=== PATIENT | female | born 1965 | race Caucasian/White ===

== ENCOUNTER 2018-01-23 19:24 | Observation (INO) ==
[2018-01-23 20:31] LABS: Basophils % 0.3 %; Eosinophils # 0.2 K/mcL (0.0-0.6); Eosinophils % 2.3 %; Hematocrit 46.8 % (35.3-44.9); Hemoglobin 15.9 g/dL (11.5-15.4); Immature Granulocytes % 0.1 % (0-4); Lymphocytes % 34.1 %; Mean Corpuscular Hemoglobin 32.4 pg (28.0-33.3); Mean Corpuscular Volume 95.5 fL (83.0-100.0); Mean Platelet Volume 10.7 fL (9.4-12.4); Monocytes # 0.7 K/mcL (0.0-1.3); Monocytes % 7.4 %; Neutrophils # 4.9 K/mcL (1.6-8.9); Platelet Count 226 K/mcL (140-400); Red Cell Distribution Width 13.5 % (11.5-14.5); Segmented Neutrophils % 55.8 %
--- NOTE | 2018-01-23 20:36 | Emergency Department Note ---
Disposition Clinical Impression: Stroke Qualifiers: CVA mechanism: other Qualified Code(s): I63.8 - Other cerebral infarction Disposition: Admitted As Inpatient Condition: Fair Forms: ED Satisfaction Letter General Adult HPI - General Chief complaint: ED Neuro Symptoms/Deficit Stated complaint: neuro sx onset SUNDAY Source: patient Limitations: no limitations Nursing Notes Reviewed: Yes Vital Signs Reviewed: Yes - History of Present Illness HPI Narrative: 50-year-old female presents emergency department after having right upper extremity weakness and right-sided facial droop since Sunday. Patient denies any history of stroke, she does report being a smoker and that strokes run in her family. Mother had a stroke. Patient has a history of atrial fibrillation. Patient is on any blood thinners. Patient denies any slurring of speech. Patient denies any fevers, chills. Pain Scale: 6 - Related Data Home Medications Medication Instructions Recorded Confirmed Buprenorphine HCl/Naloxone HCl 2 tab SL DAILY 01/23/18 01/23/18 [Buprenorphin-Naloxon 8-2 mg Sl] Allergies Allergy/AdvReac Type Severity Reaction Status Date / Time No Known Allergies Allergy Verified 01/23/18 22:38 All systems ED: reviewed and negative except as stated. Review of Systems: As Per HPI Constitutional: Denies: fever, chills Eyes: Denies: vision change Cardiovascular: Denies: chest pain, palpitations Respiratory: Denies: cough, dyspnea Gastrointestinal: Denies: abdominal pain, nausea, vomiting Genitourinary: Denies: urgency, dysuria Musculoskeletal: Denies: back pain, neck pain Integumentary: Denies: rash, abrasion Neurological: Reports: weakness. 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 Absent: scleral icterus - ENT ENT exam: normal oropharynx, mucous membranes moist - Neck Neck exam: Present: normal inspection, full ROM, trachea midline - Chest Chest inspection: Present: normal inspection, symmetric chest wall rise - Respiratory Respiratory exam: Present: normal lung sounds bilaterally. Absent: respiratory distress - Cardiovascular Cardiovascular exam: Present: regular rate, normal rhythm, normal heart sounds. Absent: systolic murmur, diastolic murmur - Abdominal Exam Abdominal exam: Present: soft, Non-Tender. Absent: distention, guarding, rebound - Extremities Exam Extremities exam: Present: normal inspection, full ROM, normal capillary refill. Absent: tenderness - Expanded Lower Extremity Exam Hip/Pelvis exam: Present: full ROM. Absent: tenderness, swelling - Back Exam Back exam: Present: normal inspection, full ROM - Neurological Exam Neurological exam: Present: alert, oriented X3, other (Patient has right-sided facial droop. She is able to wrinkle forehead. Patient has 4 out of 5 strength in the right upper extremity. No pronator drift. Finger to nose is normal.) - Psychiatric Psychiatric exam: Present: normal affect, normal mood - Skin Skin exam: Present: warm, dry, intact, normal color. Absent: rash Course Vital Signs Temperature 98.2 F 01/23/18 19:25 Pulse Rate 83 01/23/18 19:25 Respiratory Rate 16 01/23/18 19:25 Blood Pressure 146/83 01/23/18 19:25 O2 Sat by Pulse Oximetry 93 01/23/18 19:25 Temperature 98.2 F 01/23/18 19:25 Pulse Rate 72 01/23/18 23:16 Respiratory Rate 16 01/23/18 23:16 Blood Pressure 126/88 01/23/18 23:16 O2 Sat by Pulse Oximetry 95 01/23/18 23:16 Oxygen Delivery Oxygen Delivery Nasal Cannula Medical Decision Making - [facility] Narrative Medical decision making narrative: 52-year-old female presents to the emergency department with concern for stroke like symptoms. Patient has symptoms that started over 3 days ago. Patient currently out of the window for TPA. CT of the head was obtained and this was negative. EKG did not reveal any evidence of ischemia. Chest x-ray was normal as well. Neurology was consulted regarding the patient and agreed to follow patient on floor. Patient was given aspirin here in the emergency department. Patient was admitted to the hospitalist who agreed to accept admission. Patient and mother were bedside and agreed with plan. Patient hemodynamically stable and not in acute distress at time of admission to the hospital. Chest X-Ray 01/23/18 19:39 IMPRESSION: No acute pulmonary process. D/ / Zack Acosta / Zack Acosta Interpreting Provider: Zack Acosta Head CT 01/23/18 20:26 IMPRESSION: 1. No acute intracranial abnormality. D/ / Zoran Montgomery MD / Zoran Montgomery MD Interpreting Provider: Zoran Montgomery MD Vital Signs Temperature 98.2 F 01/23/18 19:25 Pulse Rate 83 01/23/18 19:25 Respiratory Rate 16 01/23/18 19:25 Blood Pressure 146/83 01/23/18 19:25 O2 Sat by Pulse Oximetry 93 01/23/18 19:25 Temperature 98.2 F 01/23/18 19:25 Pulse Rate 72 01/23/18 23:16 Respiratory Rate 16 01/23/18 23:16 Blood Pressure 126/88 01/23/18 23:16 O2 Sat by Pulse Oximetry 95 01/23/18 23:16 Oxygen Delivery Oxygen Delivery Nasal Cannula - Lab Data Result diagrams: 01/23/18 20:10 01/23/18 20:10 Lab Results 01/23/18 01/23/18 Range/Units 20:10 20:10 WBC 8.7 (4.3-11.1) K/mcL RBC 4.90 (3.82-4.97) M/mcL Hgb 15.9 H (11.5-15.4) g/dL Hct 46.8 H (35.3-44.9) % MCV 95.5 (83.0-100.0) fL MCH 32.4 (28.0-33.3) pg MCHC 34.0 (31.6-35.5) g/dL RDW 13.5 (11.5-14.5) % Plt Count 226 (140-400) K/mcL MPV 10.7 (9.4-12.4) fL Immature Gran % 0.1 (0-4) % Seg Neutrophils % 55.8 % Lymphocytes % 34.1 % Monocytes % 7.4 % Eosinophils % 2.3 % Basophils % 0.3 % Neutrophils # 4.9 (1.6-8.9) K/mcL Lymphocytes # 3.0 (0.6-4.6) K/mcL Monocytes # 0.7 (0.0-1.3) K/mcL Eosinophils # 0.2 (0.0-0.6) K/mcL Basophils # 0.0 (0.0-0.2) K/mcL Sodium 137 (136-145) mEq/L Potassium 4.6 (3.5-5.1) mEq/L Chloride 105 (98-107) mEq/L Carbon Dioxide 29 (23-29) mEq/L BUN 6 (6-20) mg/dL Creatinine 0.54 L (0.60-1.20) mg/dL Est GFR ( Amer) > 60 (> 60) Est GFR (Non-Af Amer) > 60 (> 60) BUN/Creatinine Ratio 11 (6-26) Glucose 105 (70-105) mg/dL Calculated Osmolality 282 (280-300) Calcium 9.3 (8.6-10.3) mg/dL Troponin I < 0.03 (< 0.04) ng/mL
[2018-01-23 20:45] LABS: BUN/Creatinine Ratio 11 (6-26); Blood Urea Nitrogen 6 mg/dL (6-20); Calcium 9.3 mg/dL (8.6-10.3); Carbon Dioxide 29 mEq/L (23-29); Chloride 105 mEq/L (98-107); Glucose 105 mg/dL (70-105); Osmolality,Calculated 282 (280-300); Potassium 4.6 mEq/L (3.5-5.1); Sodium 137 mEq/L (136-145); Troponin I < 0.03 ng/mL (< 0.04); eGFR For African Americans > 60 (> 60); eGFR For Non-African Americans > 60 (> 60)
--- NOTE | 2018-01-23 20:52 | Emergency Department Note ---
START Narrative - START START: I examined this patient and my medical decision-making was reviewed with the Resident Physician. I agree with the documented findings, disposition and treatment plan as described except to the extent set forth below. 52yo F here for right facial droop and some weakness that started on Sunday. She thought she would come in today to get it checked out. No history of TIA or strokes. She denies any leg weakness was states her right arm has felt weak. On exam, she has some flattening of the right nasolabial fold. Cranial nerves are otherwise intact. slight weakness of right LE. no leg involvement. will do ct head
[2018-01-23] MEDS ORDERED: Aspirin Enteric Coated 81 MG Tablet PO STA (22:28)
[2018-01-23] MEDS ORDERED: Ondansetron 4 MG/2 ML VIAL IVP PRN (23:02)
[2018-01-23] MEDS ORDERED: Acetaminophen 325 MG TABLET PO PRN (23:04)
[2018-01-23] MEDS ORDERED: Naloxone 0.4 MG/ML INJ IVP PRN (23:04)
--- NOTE | 2018-01-23 23:12 | Internal Med History&Physical ---
Date of Encounter: 01/23/18 Time of Encounter: 23:08 Internal Medicine - H&P: HPI Chief complaint: Numbness Admitted From: Emergency Dept Plans for Post Hospital Care: Home History of present illness: Ms. 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 The patient is also an everyday smoker. She was sent from urgent care to the ED and she was getting evaluated failure for complaints of numbness and weakness of the right upper extremities for the last 2 days. The patient has been generally fatigued for the last 3 days before that and this has resolved, however, on Sunday she started complaining of the above. She also reports blurry vision that gets better whenever she uses her glasses. There is also noted right facial droop by her mother. The patient denies lower extremity weakness. She has no fever, chills , nausea, vomiting, chest pain, shortness of breath, abdominal pain, diarrhea, constipation, urinary symptoms. The patient CT head failed to show any acute finding. She was given aspirin 81 mg in the ED. Laboratory workup was unremarkable. She is being admitted for TIA/CVA workup. Neurology were contacted by the ED and will see the patient. Past Med Surg Social Fam HX - Past Medical History Medical history: other Psychiatric history: no psych history - Past Surgical History Surgical History: no surgical history - Social History Smoking Status: Current every day smoker Smokeless Tobacco Status: No Alcohol use: none Drug use: none, other - Family History Mother Living Status: Still Living Hx Family Neurologic Disorders: Yes (Stroke) Father Living Status: Hx Family Cardiac Disorders: Yes Brother Living Status: Hx Family Cardiac Disorders: Yes Internal Medicine - H&P: Meds Buprenorphine HCl/Naloxone HCl [Buprenorphin-Naloxon 8-2 mg Sl] 2 tab SL DAILY 01/23/18 [History] 3 Allergy/AdvReac Type Severity Reaction Status Date / Time No Known Allergies Allergy Verified 01/23/18 22:38 All Systems PM: A 10-system review of systems was performed and is negative for pertinent findings except as documented above in the HPI. Review of systems: All systems reviewed are negative except as mentioned above - Constitutional Vitals: Temp Pulse Resp BP Pulse Ox 98.2 F 70 16 134/77 94 01/23/18 19:25 01/23/18 21:27 01/23/18 21:27 01/23/18 21:27 01/23/18 21:27 Exam: GEN: NAD HEENT: AT, NC, No cyanosis, oral mucosa is moist, No JVD Lymphatics: No lymphadenoapthy Eyes: Extrocular muscles intact, anicteric CVS:RRR. S1, S2, No m/r/g RESP: CTAB ABD: Soft, NT, ND, +BS EXT: No edema, No rashes, 2+ DP NEURO: RUE strength is 4/5 compared to 5/5 in all other ext. CN II-XII intact, No sensory deficits Psych: Cooperative, Not anxious or depressed Internal Med - H&P Results - Labs CBC & Chem 7: 01/23/18 20:10 01/23/18 20:10 Labs: Short CBC 01/23/18 Range/Units 20:10 WBC 8.7 (4.3-11.1) K/mcL Hgb 15.9 H (11.5-15.4) g/dL Hct 46.8 H (35.3-44.9) % Plt Count 226 (140-400) K/mcL Neutrophils # 4.9 (1.6-8.9) K/mcL BMP 01/23/18 20:10 Sodium 137 Potassium 4.6 Chloride 105 Carbon Dioxide 29 BUN 6 Creatinine 0.54 L Glucose 105 Calcium 9.3 Cardiac Enzymes 01/23/18 Range/Units 20:10 Troponin I < 0.03 (< 0.04) ng/mL - Impressions ITS Impressions Chest X-Ray 01/23/18 19:39 IMPRESSION: No acute pulmonary process. D/ / Zack Acosta / Zack Acosta Interpreting Provider: Zack Acosta Head CT 01/23/18 20:26 IMPRESSION: 1. No acute intracranial abnormality. D/ / Zoran Montgomery MD / Zoran Montgomery MD Interpreting Provider: Zoran Montgomery MD - Assessment and plan (1) Right upper extremity numbness Current Visit: No Status: Acute Assessment and plan: The patient presents with multiple complaints of facial droop, right upper extremity weakness and numbness. She is weaker on the right upper ext than the left upper ext on my exam. I do not appreciate facial droop. Otherwise, her neuro exam is unremarkable. CT head was negative for acute finding. We will admit the patient for an MRI brain, echocardiogram, carotid ultrasound. We will start the patient on daily aspirin. Check lipid panel and A1c. Neuro telemetry. checks. Neurology see in the morning. (2) DVT prophylaxis Current Visit: Yes Status: Acute Assessment and plan: Heparin subcutaneous (3) Drug abuse Current Visit: Yes Status: Acute Assessment and plan: Former IVDA. on Suboxone (4) Tobacco abuse Current Visit: Yes Status: Acute Assessment and plan: Nicotine patch - Time Spent With Patient Total time spent is greater than 50% in coordination of care (as documented) at patient's floor/unit and/or counseling patient:
[2018-01-24] MEDS: Nicotine 21 MG PATCH.TD24 TD SCH ×2 (01:11→09:22)
[2018-01-24] MEDS: *HR* Heparin 5,000 UNIT/ML VIAL SQ SCH ×3 (05:14→21:22)
[2018-01-24 05:50] LABS: Basophils % 0.4 %; Eosinophils # 0.2 K/mcL (0.0-0.6); Eosinophils % 2.5 %; Hematocrit 45.4 % (35.3-44.9); Hemoglobin 14.7 g/dL (11.5-15.4); Immature Granulocytes % 0.1 % (0-4); Lymphocytes # 2.5 K/mcL (0.6-4.6); Mean Corpuscular HGB Conc 32.4 g/dL (31.6-35.5); Mean Corpuscular Hemoglobin 30.8 pg (28.0-33.3); Mean Corpuscular Volume 95.2 fL (83.0-100.0); Mean Platelet Volume 10.8 fL (9.4-12.4); Monocytes # 0.6 K/mcL (0.0-1.3); Monocytes % 8.6 %; Neutrophils # 3.8 K/mcL (1.6-8.9); Platelet Count 219 K/mcL (140-400); Red Blood Count 4.77 M/mcL (3.82-4.97); Red Cell Distribution Width 13.6 % (11.5-14.5); Segmented Neutrophils % 53.4 %
[2018-01-24 05:53] LABS: BUN/Creatinine Ratio 17 (6-26); Blood Urea Nitrogen 9 mg/dL (6-20); Calcium 9.1 mg/dL (8.6-10.3); Carbon Dioxide 31 mEq/L (23-29); Chloride 106 mEq/L (98-107); Chol/HDL Ratio 5.4 (0-4.9); Cholesterol 205 mg/dL (< 200); Glucose 101 mg/dL (70-105); HDL Cholesterol 38 mg/dL (40-59); LDL Cholesterol,Calculated 127 mg/dL (0-99); Magnesium 1.9 mg/dL (1.6-2.6); Osmolality,Calculated 287 (280-300); Potassium 4.6 mEq/L (3.5-5.1); Sodium 139 mEq/L (136-145); Triglycerides 199 mg/dL (< 150); eGFR For African Americans > 60 (> 60); eGFR For Non-African Americans > 60 (> 60)
[2018-01-24 06:41] LABS: Estimated Average Glucose 114 mg/dl; Hemoglobin A1C 5.6 %
[2018-01-24] MEDS ORDERED: BUPRENORPHIN NALOXON SL SCH (09:00)
[2018-01-24] MEDS: Aspirin Enteric Coated 81 MG Tablet PO SCH (09:22)
[2018-01-24] MEDS: *HR* Buprenorphine HCl 8 MG TAB.SUBL SL SCH (09:24)
--- NOTE | 2018-01-24 10:47 | Neurology - Consult Note ---
Date of Encounter: 01/24/18 Time of Encounter: 08:45 Assessment and Plan (1) Paresthesia of right arm Current Visit: Yes Status: Acute Improving paresthesia of the right upper extremity receded from elbow to now just include the hand. Most likely peripheral etiology, but the patient does have risk factor in smoking and family history. TIA workup pending, including echo, carotid duplex, and MRI. Further recommendations following completion of workup. If workup is negative, patient should have close follow up as an outpatient for EMG. History of Present Illness Chief complaint: Right arm numbness HPI: Chantal Garsia is a 52 year old female who presents with numbness in her right upper extremity. Patient initially felt very fatigued on Sunday01/20/2018. She started to develop a numbness in her right hand the following day, explaining that it felt like pins and needles. The following day the numbness worsened and extended up to her elbow. She started to notice some swelling of her middle 3 digits. Her mother believes that she noticed some facial drooping, but the patient states that she did not have her dentures in and that can make her face look asymmetrical. Since admission the patient states that the numbness has improved and now it is only in the fingertips. 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 She is a current smoker, having smoked for approximately 25 years and smoking one pack per day. Past Med Surg Social Fam HX - Past Medical History Medical history: other Psychiatric history: no psych history - Past Surgical History Surgical History: - Social History Smoking Status: Current every day smoker Packs per day: 1 Smokeless Tobacco Status: No Alcohol use: none Drug use: none, other - Family History Mother Living Status: Still Living Hx Family Cardiac Disorders: Yes Hx Family Neurologic Disorders: Yes Father Living Status: Hx Family Cardiac Disorders: Yes Brother Age: 38 Living Status: Hx Family Cardiac Disorders: Yes Medications and Allergies Buprenorphine HCl/Naloxone HCl [Buprenorphin-Naloxon 8-2 mg Sl] 2 tab SL DAILY 01/23/18 [History] 3 Allergy/AdvReac Type Severity Reaction Status Date / Time No Known Allergies Allergy Verified 01/23/18 22:38 All Systems: The remainder of the systems were reviewed and are negative Review of Systems: A 10 point review of systems was completed and was negative except as noted in the HPI. Physical Examination - Vital Signs Vital Signs: Initial Vital Signs Temp Pulse Resp BP Pulse Ox 98.2 F 83 16 146/83 93 01/23/18 19:25 01/23/18 19:25 01/23/18 19:25 01/23/18 19:25 01/23/18 19:25 - Exam Exam: CONSTITUTIONAL: Well-developed and well-nourished. Comfortable and in no acute distress. CARDIOVASCULAR: Regular rate and rhythm. +S1 and S2. CHEST: Normal work of breathing. NEURO: Mental Status: Alert and oriented x3. Follows commands and answers questions. Cranial Nerves: PERRL. EOMI. Visual saxena intact. Symmetrical facial strength. Facial sensation intact. No dysarthria. Hearing intact. Soft palate elevates symmetrically. SCM and trapezius without weakness. Tongue protrudes in midline. Motor: Left - 5/5 in upper and lower extremities. R - 5/5 in upper and lower extremities. Diminished sensation in the right fingertips. Chronically impaired sensation in the left lower extremity distal to the knee. Cerebellar function intact to [id number]. Tinnel test at the wrist and elbow, prayer sign, Phalen sign negative. Results - Laboratory Findings CBC and BMP: 01/24/18 05:16 01/24/18 05:16 Abnormal lab findings: Abnormal lab results Hct 45.4 % (35.3-44.9) H 01/24/18 05:16 Carbon Dioxide 31 mEq/L (23-29) H 01/24/18 05:16 Creatinine 0.52 mg/dL (0.60-1.20) L 01/24/18 05:16 Triglycerides 199 mg/dL (< 150) H 01/24/18 05:16 Cholesterol 205 mg/dL (< 200) H 01/24/18 05:16 LDL Cholesterol, Calc 127 mg/dL (0-99) H 01/24/18 05:16 VLDL Cholesterol, Calc 40 mg/dL (< 31) H 01/24/18 05:16 HDL Cholesterol 38 mg/dL (40-59) L 01/24/18 05:16 Cholesterol/HDL Ratio 5.4 (0-4.9) H 01/24/18 05:16 Consult Discharge Plan - Plan Referrals: Larry Ramirez DO [Resident] - 02/04/18 3:20 pm
--- NOTE | 2018-01-24 15:53 | Electrocardiograph Report ---
[address] [place], [place] [address] Test Date: 2018-01-23 Pat Name: Chantal Garsia Department: 104 Room: 2N06 Gender: F [employer] Supervisor: REDD : 1965 Requested By: Hawk Houston Order Number: [id number] Reading MD: Candy Wood Measurements Intervals [place] Rate: 77 P: 59 AK: 130 QRS: 81 QRSD: 86 T: 57 QT: 352 QTc: 384 Interpretive Statements SINUS RHYTHM Electronically Signed On 01-24-2018 15:52:06 EDT by Candy Wood
--- NOTE | 2018-01-24 21:00 | Internal Med Progress Note ---
Date of Encounter: 01/24/18 Time of Encounter: 19:00 - Assessment and plan (1) Median nerve compression in right forearm Status: Acute Assessment and plan: Her MRI of brain and carotid duplex are normal. Echogardiogram is pending. She does have parasthesia in the right hand. This is likely due to right median nerve compression. See notes from neurology. (2) CVA (cerebral vascular accident) Status: Ruled-out Assessment and plan: Cva was ruled out. See above. Qualifiers: CVA mechanism: unspecified Qualified Code(s): I63.9 - Cerebral infarction, unspecified - Time Spent With Patient Total time spent is greater than 50% in coordination of care (as documented) at patient's floor/unit and/or counseling patient: 25 - 35 minutes - Subjective Interval history: The patient feels pretty good. Numbness and tingling as well as swelling in the right hand are very mild. They are definitely better than a couple days ago. She doesn't have any weakness in extremities. She is normal speech and swallowing. She is normal gait. - Constitutional Vitals: Temp Pulse Resp BP Pulse Ox 97.5 F L 65 17 134/86 95 01/24/18 19:19 01/24/18 19:19 01/24/18 19:19 01/24/18 19:19 01/24/18 19:19 General appearance: Present: A&O X 3, pleasant, no acute distress, answers questions appropriately - Cardiovascular Cardiovascular exam: Present: RRR, +S1, +S2. Absent: diastolic murmur, gallop, rubs, systolic murmur - GI/Abdominal GI/Abdominal exam: Present: normal bowel sounds, soft, no peritoneal signs. Absent: distended, tenderness - Neurological Exam Neurological exam: Present: no focal deficits, strengths equal and symetr throughout Additional comments: She has some parasthesia in the right hand. Internal Medicine: Result - Labs CBC & Chem 7: 01/24/18 05:16 01/24/18 05:16 Labs: Short CBC 01/24/18 Range/Units 05:16 WBC 7.2 (4.3-11.1) K/mcL Hgb 14.7 (11.5-15.4) g/dL Hct 45.4 H (35.3-44.9) % Plt Count 219 (140-400) K/mcL Neutrophils # 3.8 (1.6-8.9) K/mcL BMP 01/24/18 05:16 Sodium 139 Potassium 4.6 Chloride 106 Carbon Dioxide 31 H BUN 9 Creatinine 0.52 L Glucose 101 Calcium 9.1 - Impressions Impressions Echocardiogram 01/24/18 10:00 Impressions: LVEF 60%. Mildly dilated left ventricle. Mild left ventricular diastolic dysfunction. Normal right ventricular structure and function. No significant valvular dysfunction. No pulmonary hypertension. No evidence of PFO with agitated saline contrast. Left Ventricular Wall Motion: Rest Echo Findings All wall segments showed normal motion. Findings: Study Quality * Technically adequate exam. ECG Findings * Normal sinus rhythm. Left Ventricle * LVEF 60%. * Normal LV wall thickness. * LV chamber size upper limits of normal. * Mild left ventricular diastolic dysfunction. Right Ventricle * Normal right ventricular structure and function. Left Atrium * Mildly dilated left atrium. Right Atrium * Normal right atrial size. Mitral Valve * Normal mitral valve structure. * No mitral stenosis. * Trace mitral regurgitation. Aortic Valve * No aortic regurgitation. * Aortic valve not well visualized. * No aortic stenosis. Tricuspid Valve * Tricuspid valve not well visualized. * Trace tricuspid regurgitation. * Estimated RA pressure is 3 mmHg. * Estimated RVSP is 19 mmHg. * No pulmonary hypertension. Pulmonic Valve * Pulmonic valve is not well visualized. * No pulmonic stenosis. * Trace pulmonic regurgitation. Pulmonary Artery * Pulmonary artery not well visualized. Aorta * Normally sized aortic root. Pericardium * There is no pericardial effusion present. Interatrial Septum * No evidence of PFO by color Doppler. * No evidence of PFO with agitated saline contrast. IVC * The IVC is not dilated. Consult Discharge Plan - Plan Additional Instructions: SICK LEAVE: 01/23-01/25/18 Referrals: Larry Ramirez DO [Resident] - 02/04/18 3:20 pm
[2018-01-25] MEDS: *HR* Heparin 5,000 UNIT/ML VIAL SQ SCH ×2 (05:06→15:57)
[2018-01-25] MEDS: Nicotine 21 MG PATCH.TD24 TD SCH (08:12)
[2018-01-25] MEDS: Aspirin Enteric Coated 81 MG Tablet PO SCH (08:12)
[2018-01-25] MEDS: *HR* Buprenorphine HCl 8 MG TAB.SUBL SL SCH (08:13)
--- NOTE | 2018-01-25 10:41 | Neurology Progress Note ---
<Gilberto Ruano - Last Filed: 01/25/18 10:38> Date of Encounter: 01/25/18 Time of Encounter: 09:15 Assessment and Plan (1) Paresthesia of right arm Current Visit: Yes Status: Acute Continued improvement of paresthesia. Regressed from elbow to include only hand yesterday. Now only including tip of 3rd digit. MRI head without acute findings. Echocardiography and carotid Doppler without significant findings. Most likely etiology is a peripheral nerve palsy. Possibly compressive nerve injury, mostly in the territory of the right median nerve. No focal weakness noted. Patient follow-up with neurology as an outpatient in 2 to 3 weeks for EMG if there is no further resolution or there is return of symptoms. Subjective Principal diagnosis: Right upper extremity paresthesia Interval history: Patient reports continued interval improvement of paresthesia in the right hand. It is now confined to only the tip of the 3rd digit. Objective - Constitutional Vitals: Temp Pulse Resp BP Pulse Ox 97.4 F L 70 16 132/61 96 01/25/18 06:56 01/25/18 06:56 01/25/18 06:56 01/25/18 06:56 01/25/18 06:56 - Other Additional findings: CONSTITUTIONAL: Well-developed and well-nourished. Comfortable and in no acute distress. CARDIOVASCULAR: Regular rate and rhythm. +S1 and S2. CHEST: Normal work of breathing. NEURO: Mental Status: Alert and oriented x3. Follows commands and answers questions. Cranial Nerves: PERRL. EOMI. Visual saxena intact. Symmetrical facial strength. Facial sensation intact. No dysarthria. Hearing intact. Soft palate elevates symmetrically. SCM and trapezius without weakness. Tongue protrudes in midline. Motor: Left - 5/5 in upper and lower extremities. Right - 5/5 in upper and lower extremities. Paresthesia of the distal right 3rd digit. Cerebellar function intact to [id number]. Results - Laboratory Findings CBC and BMP: 01/24/18 05:16 01/24/18 05:16 Abnormal lab findings: Abnormal lab results Hct 45.4 % (35.3-44.9) H 01/24/18 05:16 Carbon Dioxide 31 mEq/L (23-29) H 01/24/18 05:16 Creatinine 0.52 mg/dL (0.60-1.20) L 01/24/18 05:16 Triglycerides 199 mg/dL (< 150) H 01/24/18 05:16 Cholesterol 205 mg/dL (< 200) H 01/24/18 05:16 LDL Cholesterol, Calc 127 mg/dL (0-99) H 01/24/18 05:16 VLDL Cholesterol, Calc 40 mg/dL (< 31) H 01/24/18 05:16 HDL Cholesterol 38 mg/dL (40-59) L 01/24/18 05:16 Cholesterol/HDL Ratio 5.4 (0-4.9) H 01/24/18 05:16 - Diagnostic Findings Additional findings: Chest X-Ray 01/23/18 19:39 IMPRESSION: No acute pulmonary process. D/ / Zack Acosta / Zack Acosta Interpreting Provider: Zack Acosta Head CT 01/23/18 20:26 IMPRESSION: 1. No acute intracranial abnormality. D/ / Zoran Montgomery MD / Zoran Montgomery MD Interpreting Provider: Zoran Montgomery MD Brain MRI 01/23/18 23:05 IMPRESSION: No acute infarct, intracranial hemorrhage, or significant mass effect. D/ / 01/24/2018 22:17:05 Donis Serrano MD / rob Interpreting Provider: Donis Serrano MD Echocardiogram 01/24/18 10:00 Impressions: LVEF 60%. Mildly dilated left ventricle. Mild left ventricular diastolic dysfunction. Normal right ventricular structure and function. No significant valvular dysfunction. No pulmonary hypertension. No evidence of PFO with agitated saline contrast. Left Ventricular Wall Motion: Rest Echo Findings All wall segments showed normal motion. Findings: Study Quality * Technically adequate exam. ECG Findings * Normal sinus rhythm. Left Ventricle * LVEF 60%. * Normal LV wall thickness. * LV chamber size upper limits of normal. * Mild left ventricular diastolic dysfunction. Right Ventricle * Normal right ventricular structure and function. Left Atrium * Mildly dilated left atrium. Right Atrium * Normal right atrial size. Mitral Valve * Normal mitral valve structure. * No mitral stenosis. * Trace mitral regurgitation. Aortic Valve * No aortic regurgitation. * Aortic valve not well visualized. * No aortic stenosis. Tricuspid Valve * Tricuspid valve not well visualized. * Trace tricuspid regurgitation. * Estimated RA pressure is 3 mmHg. * Estimated RVSP is 19 mmHg. * No pulmonary hypertension. Pulmonic Valve * Pulmonic valve is not well visualized. * No pulmonic stenosis. * Trace pulmonic regurgitation. Pulmonary Artery * Pulmonary artery not well visualized. Aorta * Normally sized aortic root. Pericardium * There is no pericardial effusion present. Interatrial Septum * No evidence of PFO by color Doppler. * No evidence of PFO with agitated saline contrast. IVC * The IVC is not dilated. Consult Discharge Plan - Plan Additional Instructions: SICK LEAVE: 01/23-01/25/18 Referrals: Larry Ramirez DO [Resident] - 02/04/18 3:20 pm <Lior Saucedo I - Last Filed: 01/25/18 15:25> Date of Encounter: 01/25/18 Assessment and Plan (1) Median nerve compression in right forearm Current Visit: Yes Status: Acute (2) Paresthesia of right arm Current Visit: Yes Status: Acute Pt was seen and examined, my medical decision was reviewed with the Resident Physician, I agree with the documented findings, disposition and treatment plas as described except to the extent set forth below No neurology further workup recommended at this time can be done as an outpatient follow-up visit neurology clinic TO DISCHARGE FROM NEUROLOGY STANDPOINT Lior Saucedo MD Objective - Constitutional Vitals: Temp Pulse Resp BP Pulse Ox 98.0 F 68 16 114/86 97 01/25/18 11:09 01/25/18 11:09 01/25/18 11:09 01/25/18 11:09 01/25/18 11:09 Results - Laboratory Findings CBC and BMP: 01/24/18 05:16 01/24/18 05:16 Abnormal lab findings: Abnormal lab results Hct 45.4 % (35.3-44.9) H 01/24/18 05:16 Carbon Dioxide 31 mEq/L (23-29) H 01/24/18 05:16 Creatinine 0.52 mg/dL (0.60-1.20) L 01/24/18 05:16 Triglycerides 199 mg/dL (< 150) H 01/24/18 05:16 Cholesterol 205 mg/dL (< 200) H 01/24/18 05:16 LDL Cholesterol, Calc 127 mg/dL (0-99) H 01/24/18 05:16 VLDL Cholesterol, Calc 40 mg/dL (< 31) H 01/24/18 05:16 HDL Cholesterol 38 mg/dL (40-59) L 01/24/18 05:16 Cholesterol/HDL Ratio 5.4 (0-4.9) H 01/24/18 05:16
[2018-01-25 11:11] VITALS: BP 114/86
--- NOTE | 2018-01-25 14:38 | Discharge Summary ---
- NOTES TO OUTPATIENT PROVIDER Notes to Outpatient Provider: THE PATIENT IS BASICALLY BASELINE. EMG TO BE DONE IN 2-3 WEEKS, IF NEEDED. Date of Encounter: 01/25/18 Time of Encounter: 14:36 - Discharge Diagnosis (1) Median nerve compression in right forearm Priority: Primary Status: Acute Comments: NEARLY COMPLETELY RESOLVED (2) CVA (cerebral vascular accident) Priority: Secondary Status: Ruled-out Qualifiers: CVA mechanism: unspecified Qualified Code(s): I63.9 - Cerebral infarction, unspecified Hospital course: Ms. Garsia is a 52 year old woman.She was admitted to the hospital with a questionable right sided facial droop and questionable very mild weakness in the right upper extremity. Eventually, her symptoms/signs focused on right hand parasthesia. MRI of brain, carotid duplex and echocardiogram are normal. Consultation was obtained from neurology. We feel that this patient has had medium nerve compression on the right side. When leaving hospital she had only very mild parasthesia in the right hand. Her problems started shortly after nighttime sleep. It nearly resolved by the time of the discharge. Discharge discussed with: patient, nurse, case management - Time Spent with Patient Total time spent providing and/or coordinating discharge services: Less than 30 minutes - Discharge Medications Home Medications: Buprenorphine HCl/Naloxone HCl [Buprenorphin-Naloxon 8-2 mg Sl] 2 tab SL DAILY 01/23/18 [History] Allergies/Adverse Reactions: 3 Allergy/AdvReac Type Severity Reaction Status Date / Time No Known Allergies Allergy Verified 01/23/18 22:38 Date of admission: 01/24/18 00:44 Primary care physician: PCP NONE Consults: NEUROLOGY Discharging clinician: Elton Mulligan Anticipated date of discharge: 01/25/18 - Constitutional Vitals: Temp Pulse Resp BP Pulse Ox 98.0 F 68 16 114/86 97 01/25/18 11:09 01/25/18 11:09 01/25/18 11:09 01/25/18 11:09 01/25/18 11:09 General appearance: Present: A&O X 3, pleasant, no acute distress - Respiratory Respiratory exam: Present: CTAB. Absent: rales, rhonchi, wheezes - Cardiovascular Cardiovascular exam: Present: RRR. Absent: diastolic murmur, gallop, systolic murmur - Neurological Exam Neurological exam: Present: CN II-XII intact, oriented X3, no focal deficits. Absent: pronater drift, facial droop, speech deficit Additional comments: HAS NL STRENGTH/MOWEMENTS IN RIGHT HAND/R UPPER EXTREMITY. - Patient Status Disposition: Home, Self-Care Condition: Good Functional capacity at discharge: independent ambulation Overall status at discharge: patient is back to baseline - Discharge Instructions Follow Up With: Larry Ramirez DO [Resident] - 02/04/18 3:20 pm Additional Instructions: SICK LEAVE: 01/23-01/25/18 - VTE Reasons for not Prescribing Prophylaxis: Treatment not Indicated - Low risk for VTE Deep Vein Thrombosis/Pulmonary Embolism Present on Admission: No
== END 2018-01-25 16:09 | disposition home or self-care (01) ==
LOC: EMEROO 19:24 → 2NNU 19:24 → SUATTDRO 01-24 00:44 → 2NNU 01-24 02:20
PROVIDERS: ADMIT Internal Medicine; ATTEND Internal Medicine

== ENCOUNTER 2020-06-27 17:55 | Observation (INO) ==
[2020-06-27] MEDS ORDERED: Azithromycin 500 MG in 0.9 % Sodium Chloride 250 ML IVPB ONE (18:52)
[2020-06-27] MEDS ORDERED: cefTRIAXone 1,000 MG in Water for inj. (sterile) 10 ML IVP ONE (18:52)
[2020-06-27 19:21] LABS: Immature Granulocytes % 0.6 % (0-4); Lymphocytes % 4.2 %; Red Cell Distribution Width 13.3 % (11.5-14.5)
[2020-06-27 19:22] LABS: Basophils # 0.1 K/mcL (0.0-0.2); Basophils % 0.2 %; Hematocrit 43.6 % (35.3-44.9); Hemoglobin 14.6 g/dL (11.5-15.4); Lymphocytes # 1.2 K/mcL (0.6-4.6); Mean Corpuscular HGB Conc 33.5 g/dL (31.6-35.5); Mean Corpuscular Hemoglobin 32.4 pg (28.0-33.3); Mean Corpuscular Volume 96.9 fL (83.0-100.0); Mean Platelet Volume 10.1 fL (9.4-12.4); Monocytes # 1.6 K/mcL (0.0-1.3); Monocytes % 5.7 %; Neutrophils # 25.4 K/mcL (1.6-8.9); Platelet Count 235 K/mcL (140-400); Segmented Neutrophils % 89.3 %; White Blood Count 28.4 K/mcL (4.3-11.1)
[2020-06-27 19:39] LABS: Platelet Estimate Normal (Normal)
[2020-06-27 19:42] LABS: Alanine Aminotransferase 7 Units/L (7-52); Albumin 3.7 g/dL (3.5-5.7); Albumin/Globulin Ratio 1.1 (1.1-2.2); Alkaline Phosphatase 75 Units/L (34-104); Aspartate Amino Transferase 11 Units/L (13-39); BUN/Creatinine Ratio 23 (6-26); Bilirubin,Total 0.6 mg/dL (0.3-1.0); Blood Urea Nitrogen 10 mg/dL (6-20); Calcium 8.9 mg/dL (8.6-10.3); Carbon Dioxide 26 mEq/L (23-29); Chloride 100 mEq/L (98-107); Globulin 3.4 g/dL (2.4-3.5); Glucose 112 mg/dL (70-105); Osmolality,Calculated 278 (280-300); Potassium 3.6 mEq/L (3.5-5.1); Sodium 134 mEq/L (136-145); Total Protein 7.1 g/dL (6.4-8.9); Troponin I < 0.03 ng/mL (< 0.04); eGFR For African Americans > 60 (> 60); eGFR For Non-African Americans > 60 (> 60)
[2020-06-27] MEDS ORDERED: 0.9 % Sodium Chloride 1,000 ML IVC ONE (20:03)
[2020-06-27 23:36] LABS: Adenovirus Not Detected (Not Detect); Bordetella Pertussis Not Detected (Not Detect); Chlamydophila pneumoniae Not Detected (Not Detect); Coronavirus 229E Not Detected (Not Detect); Coronavirus HKU1 Not Detected (Not Detect); Coronavirus NL63 Not Detected (Not Detect); Coronavirus OC43 Not Detected (Not Detect); Human Metapneumovirus Not Detected (Not Detect); Human Rhinovirus/Enterovirus Not Detected (Not Detect); Influenza A Subtype 2009 H1 Not Detected (Not Detect); Influenza B Not Detected (Not Detect); Mycoplasma pneumoniae Not Detected (Not Detect); Parainfluenza Virus 1 Not Detected (Not Detect); Parainfluenza Virus 2 Not Detected (Not Detect); Parainfluenza Virus 3 Not Detected (Not Detect); Parainfluenza Virus 4 Not Detected (Not Detect); Respiratory Syncytial Virus Not Detected (Not Detect); SARS-CoV-2 Not Detected (Not Detect)
[2020-06-28] MEDS ORDERED: Ondansetron ODT 4 MG TAB.RAPDIS SL PRN (00:47)
[2020-06-28] MEDS ORDERED: Naloxone 0.4 MG/ML INJ IVP PRN (00:47)
[2020-06-28] MEDS ORDERED: Acetaminophen 325 MG TABLET PO PRN (00:47)
[2020-06-28] MEDS ORDERED: Ipratropium/Albuterol Neb 3 ML IH PRN (00:50)
[2020-06-28] MEDS: 0.9 % Sodium Chloride 1,000 ML IVC SCH ×4 (01:27→21:35)
[2020-06-28 02:20] LABS: Hematocrit 41.6 % (35.3-44.9); Hemoglobin 13.2 g/dL (11.5-15.4); Mean Corpuscular HGB Conc 31.7 g/dL (31.6-35.5); Mean Corpuscular Hemoglobin 31.1 pg (28.0-33.3); Mean Corpuscular Volume 98.1 fL (83.0-100.0); Mean Platelet Volume 10.1 fL (9.4-12.4); Platelet Count 216 K/mcL (140-400); Red Blood Count 4.24 M/mcL (3.82-4.97); Red Cell Distribution Width 13.5 % (11.5-14.5); White Blood Count 27.6 K/mcL (4.3-11.1)
[2020-06-28 02:35] LABS: BUN/Creatinine Ratio 20 (6-26); Blood Urea Nitrogen 9 mg/dL (6-20); Calcium 8.4 mg/dL (8.6-10.3); Carbon Dioxide 29 mEq/L (23-29); Chloride 103 mEq/L (98-107); Glucose 106 mg/dL (70-105); Magnesium 1.8 mg/dL (1.6-2.6); Osmolality,Calculated 279 (280-300); Phosphorous 2.5 mg/dL (2.7-4.5); Potassium 3.8 mEq/L (3.5-5.1); Sodium 135 mEq/L (136-145); eGFR For African Americans > 60 (> 60); eGFR For Non-African Americans > 60 (> 60)
[2020-06-28 03:47] LABS: Thyroid Stimulating Hormone 0.302 mcIU/mL (0.340-5.600)
[2020-06-28] MEDS ORDERED: cefTRIAXone 1,000 MG in Water for inj. (sterile) 10 ML IVPB SCH (09:00)
[2020-06-28] MEDS ORDERED: Azithromycin 500 MG in 0.9 % Sodium Chloride 250 ML IVPB SCH (09:00)
[2020-06-28] MEDS ORDERED: NALOXONE HCL SL SCH (09:45)
[2020-06-28] MEDS ORDERED: BUPRENORPHINE HCL SL SCH (09:45)
[2020-06-28] MEDS ORDERED: Nicotine 21 MG PATCH.TD24 TD SCH (11:30)
[2020-06-28] MEDS: *HR* Buprenorphine HCl 8 MG TAB.SUBL SL SCH ×2 (12:47→21:38)
[2020-06-28] MEDS: *HR* Heparin 5,000 UNIT/ML VIAL SQ SCH ×2 (13:02→21:40)
[2020-06-28 13:22] LABS: Triiodothyronine (T3) Total 0.75 ng/mL (0.87-1.78)
[2020-06-28] MEDS: Ipratropium/Albuterol Neb 3 ML IH SCH ×3 (15:43→20:12)
[2020-06-29] MEDS: Ipratropium/Albuterol Neb 3 ML IH SCH ×3 (00:22→07:40)
[2020-06-29] MEDS: *HR* Heparin 5,000 UNIT/ML VIAL SQ SCH (04:16)
[2020-06-29] MEDS: 0.9 % Sodium Chloride 1,000 ML IVC SCH (04:21)
[2020-06-29 06:32] LABS: Basophils % 0.2 %; Eosinophils # 0.1 K/mcL (0.0-0.6); Hematocrit 38.5 % (35.3-44.9); Hemoglobin 11.8 g/dL (11.5-15.4); Immature Granulocytes % 0.2 % (0-4); Lymphocytes # 2.1 K/mcL (0.6-4.6); Mean Corpuscular HGB Conc 30.6 g/dL (31.6-35.5); Mean Corpuscular Hemoglobin 30.5 pg (28.0-33.3); Mean Corpuscular Volume 99.5 fL (83.0-100.0); Mean Platelet Volume 10.4 fL (9.4-12.4); Monocytes # 0.8 K/mcL (0.0-1.3); Monocytes % 8.2 %; Neutrophils # 6.2 K/mcL (1.6-8.9); Platelet Count 204 K/mcL (140-400); Red Blood Count 3.87 M/mcL (3.82-4.97); Red Cell Distribution Width 13.6 % (11.5-14.5); Segmented Neutrophils % 67.4 %
[2020-06-29 06:38] LABS: White Blood Count 9.2 K/mcL (4.3-11.1)
[2020-06-29 06:54] LABS: BUN/Creatinine Ratio 25 (6-26); Blood Urea Nitrogen 8 mg/dL (6-20); Calcium 8.8 mg/dL (8.6-10.3); Carbon Dioxide 26 mEq/L (23-29); Chloride 110 mEq/L (98-107); Glucose 100 mg/dL (70-105); Magnesium 1.7 mg/dL (1.6-2.6); Osmolality,Calculated 288 (280-300); Phosphorous 2.2 mg/dL (2.7-4.5); Sodium 140 mEq/L (136-145); eGFR For African Americans > 60 (> 60); eGFR For Non-African Americans > 60 (> 60)
[2020-06-29 07:23] VITALS: BP 132/73
[2020-06-29] MEDS ORDERED: cefTRIAXone 1,000 MG in Water for inj. (sterile) 10 ML IVP SCH (09:00)
[2020-06-29] MEDS: *HR* Buprenorphine HCl 8 MG TAB.SUBL SL SCH (10:06)
== END 2020-06-29 10:35 | disposition home or self-care (01) ==
LOC: 3BNU 17:55 → EMEROOARM 17:55 → SUATTDRO 06-28 00:20 → 3BNU 06-28 00:46
PROVIDERS: ADMIT Student in an Organized Health Care Education/Training Program; ATTEND Internal Medicine